=== PATIENT | male | born 1960 | race African-American/Black ===

== ENCOUNTER 2019-02-16 10:17 | Emergency (ER) | payer MEDICAID ==
[~2019-02-16] VITALS: Ht 170.2 cm; Wt 90.0 kg
[2019-02-16] MEDS ORDERED: SODIUM CHLORIDE 0.9% 1,000 ML IV ONE (10:30)
[2019-02-16 11:12] LABS: EOSINOPHILS % 3.1 % (0.0-5.0); HEMATOCRIT. 43.5 % (42.0-52.0); HEMOGLOBIN. 14.4 g/dL (14.0-18.0); LYMPHOCYTES % 30.3 % (20.0-50.0); MEAN CORPUSCULAR HEMOGLOBIN 29.3 pg (28.0-32.0); MEAN CORPUSCULAR VOLUME 88.6 fL (80.0-94.0); MEAN PLATELET VOLUME 9.7 fl (7.4-10.4); MONOCYTES % 8.4 % (2.0-8.0); NEUTROPHILS % 56.2 % (40.0-76.0); PLATELET 205 x1000/uL (130-400); RED BLOOD CELL COUNT 4.91 mill/uL (4.7-6.1); RED CELL DISTRIBUTION WIDTH 14.2 % (11.6-14.6)
[2019-02-16] MEDS ORDERED: ONDANSETRON HCL 4MG/2ML INJ IV ONE (11:15)
[2019-02-16] MEDS ORDERED: MORPHINE SULFATE 4 MG/ML CPJ (NOT FOR IM USE) IV ONE (11:15)
[2019-02-16 11:20] LABS: CHLORIDE 108 mEq/L (98-107)
[2019-02-16 11:26] LABS: ETHANOL BLOOD < 10 mg/dL
[2019-02-16] MEDS ORDERED: FENTANYL CITRATE/PF 50MCG/ML 2ML VIAL IV ONE (11:45)
[2019-02-16 13:34] LABS: *AMPHETAMINES SCREEN URINE NEGATIVE (NEGATIVE); *BARBITURATES SCREEN URINE NEGATIVE (NEGATIVE); *BENZODIAZEPINES SCREEN URINE NEGATIVE (NEGATIVE); *COCAINE SCREEN URINE NEGATIVE (NEGATIVE); CANNABINOID URINE SCREEN NEGATIVE (NEGATIVE); PHENCYCLIDINE URINE SCREEN NEGATIVE (NEGATIVE)
[2019-02-16 13:36] LABS: METHADONE URINE SCREEN NEGATIVE (NEGATIVE); OPIATES URINE SCREEN NEGATIVE (NEGATIVE)
[2019-02-16 17:00] VITALS: BP 92/66
== END 2019-02-16 18:31 | disposition home or self-care (01) ==
LOC: ER 10:30 → EDBEDREQ 12:42 → EDBEDREQSVC 12:42 → ER 18:31 → CANBEDREQ 19:08
DX: R07.89 Other chest pain (principal); I16.1 Hypertensive emergency; I11.0 Hypertensive heart disease with heart failure; I50.9 Heart failure, unspecified; F32.9 Major depressive disorder, single episode, unspecified; I25.10 Atherosclerotic heart disease of native coronary artery without angina pectoris; I25.2 Old myocardial infarction; F17.200 Nicotine dependence, unspecified, uncomplicated; Z95.5 Presence of coronary angioplasty implant and graft; Z91.041 Radiographic dye allergy status; Z88.4 Allergy status to anesthetic agent
CPT/HCPCS: 36415; 71045; 80053; 80305; 80320; 83690; 83880; 84484; 85025; 93005; 99284; J3010; J7030; J2405; G0480

== ENCOUNTER 2019-02-26 20:20 | Inpatient (IN) | payer MEDICAID ==
[~2019-02-26] VITALS: Ht 167.6 cm; Wt 76.7 kg
[2019-02-26] MEDS ORDERED: ONDANSETRON HCL 4MG/2ML INJ IV STA (21:21)
[2019-02-26] MEDS ORDERED: SODIUM CHLORIDE 0.9% 1,000 ML IV ONE ×4 (21:21→23:47)
[2019-02-26] MEDS ORDERED: MORPHINE SULFATE 4 MG/ML CPJ (NOT FOR IM USE) IV STA (21:21)
[2019-02-26] MEDS ORDERED: NITROGLYCERIN 0.4MG TABLET SL SL PRN (21:30)
[2019-02-26] MEDS ORDERED: ASPIRIN 81MG TABLET PO ONE (21:30)
[2019-02-26 22:56] LABS: *AMPHETAMINES SCREEN URINE NEGATIVE (NEGATIVE); *BARBITURATES SCREEN URINE NEGATIVE (NEGATIVE); *BENZODIAZEPINES SCREEN URINE NEGATIVE (NEGATIVE); *COCAINE SCREEN URINE NEGATIVE (NEGATIVE); METHADONE URINE SCREEN NEGATIVE (NEGATIVE)
[2019-02-26 22:57] LABS: CANNABINOID URINE SCREEN NEGATIVE (NEGATIVE); OPIATES URINE SCREEN NEGATIVE (NEGATIVE); PHENCYCLIDINE URINE SCREEN NEGATIVE (NEGATIVE)
[2019-02-26 23:32] LABS: BASOPHILS % 0.9 % (0.0-2.0); EOSINOPHILS % 0.7 % (0.0-5.0); HEMATOCRIT. 38.3 % (42.0-52.0); HEMOGLOBIN. 12.7 g/dL (14.0-18.0); LYMPHOCYTES % 19.8 % (20.0-50.0); MEAN CORPUSCULAR HEMOGLOBIN 29.4 pg (28.0-32.0); MEAN CORPUSCULAR VOLUME 88.4 fL (80.0-94.0); MEAN PLATELET VOLUME 9.7 fl (7.4-10.4); MONOCYTES % 8.4 % (2.0-8.0); NEUTROPHILS % 70.2 % (40.0-76.0); PLATELET 181 x1000/uL (130-400); RED BLOOD CELL COUNT 4.33 mill/uL (4.7-6.1)
[2019-02-26 23:35] LABS: CHLORIDE 109 mEq/L (98-107)
[2019-02-26 23:41] LABS: D-DIMER 0.32 mg/L FEU (<0.50); PARTIAL THROMBOPLASTIN TIME 33.1 sec (23.4-31.0); PROTHROMBIN TIME 10.1 sec (9.6-11.0)
[2019-02-27] MEDS ORDERED: PHENYTOIN SODIUM EXTENDED 100MG CAPSULE PO SCH (02:00)
[2019-02-27] MEDS: IBUPROFEN 600MG TABLET PO PRN ×2 (02:04→20:39)
[2019-02-27] MEDS: LEVETIRACETAM 500MG TABLET PO SCH ×2 (09:00→15:48)
[2019-02-27] MEDS ORDERED: ACETAMINOPHEN 325MG TABLET PO PRN (09:30)
[2019-02-27] MEDS ORDERED: IPRATROPIUM/ALBUTEROL 0.5-3(2.5)MG/3ML NEB HHN PRN (09:30)
[2019-02-27] MEDS ORDERED: ONDANSETRON HCL 4MG/2ML INJ IV PRN (09:30)
[2019-02-27 10:09] LABS: LDL CHOLESTEROL 64 mg/dL (5-100)
[2019-02-27 10:10] LABS: HDL CHOLESTEROL 71 mg/dL (40-59)
[2019-02-27] MEDS ORDERED: LEVOFLOXACIN 750MG PREMIX 150 ML IV NR (10:23)
[2019-02-27] MEDS ORDERED: KETOROLAC 30MG/ML VIAL IV PRN (11:00)
[2019-02-27] MEDS ORDERED: BUDESONIDE 0.5MG/2ML NEB HHN SCH (11:00)
[2019-02-27 12:00] VITALS: BP 99/54
[2019-02-27] MEDS ORDERED: ASPIRIN 81MG TABLET PO SCH (12:00)
[2019-02-27] MEDS: NICOTINE 21MG PATCH TD SCH (15:29)
[2019-02-27] MEDS ORDERED: QUET100T MT (15:35)
[2019-02-27] MEDS ORDERED: PHEN50TA PO (15:35)
[2019-02-27] MEDS ORDERED: BENZ1TAB7 MT (15:35)
[2019-02-27] MEDS ORDERED: CLOP75TA33 PO (15:35)
[2019-02-27] MEDS ORDERED: FURO-152 PO (15:35)
[2019-02-27] MEDS ORDERED: ASPI-1158 PO (15:35)
[2019-02-27] MEDS ORDERED: POTA10TA19 PO (15:35)
[2019-02-27] MEDS ORDERED: HAL5 MT (15:35)
[2019-02-27] MEDS ORDERED: IBUP-2030 PO (15:35)
[2019-02-27] MEDS ORDERED: ATOR40TA70 PO (15:35)
[2019-02-27] MEDS ORDERED: FLUT1AER4 INH (15:35)
[2019-02-27] MEDS ORDERED: CLOPIDOGREL 75MG TABLET PO SCH (15:45)
[2019-02-27] MEDS ORDERED: HALOPERIDOL 5MG TABLET PO PRN (15:45)
[2019-02-27 16:00] VITALS: BP 101/56
[2019-02-27] MEDS: QUETIAPINE FUMARATE 50MG TABLET PO SCH ×2 (17:10→20:01)
[2019-02-27] MEDS: BENZTROPINE MESYLATE 1MG TABLET PO SCH ×2 (17:10→20:02)
[2019-02-27] MEDS: CLOPIDOGREL 75MG TABLET PO SCH (17:10)
[2019-02-27] MEDS: PHENYTOIN SODIUM EXTENDED 100MG CAPSULE PO SCH ×2 (17:10→20:02)
[2019-02-27] MEDS ORDERED: ATORVASTATIN CALCIUM 40MG TABLET PO SCH ×2 (21:00)
[2019-02-28 00:31] VITALS: BP 92/50
[2019-02-28 04:00] VITALS: BP 101/64
[2019-02-28 06:31] LABS: BASOPHILS % 1.3 % (0.0-2.0); HEMATOCRIT. 41.2 % (42.0-52.0); HEMOGLOBIN. 13.9 g/dL (14.0-18.0); LYMPHOCYTES % 36.7 % (20.0-50.0); MEAN CORPUSCULAR HEMOGLOBIN 30.1 pg (28.0-32.0); MEAN CORPUSCULAR VOLUME 89.2 fL (80.0-94.0); MEAN PLATELET VOLUME 10.6 fl (7.4-10.4); MONOCYTES % 11.5 % (2.0-8.0); NEUTROPHILS % 47.5 % (40.0-76.0); PLATELET 198 x1000/uL (130-400); RED BLOOD CELL COUNT 4.62 mill/uL (4.7-6.1)
[2019-02-28 06:36] LABS: CHLORIDE 113 mEq/L (98-107)
[2019-02-28 08:00] VITALS: BP 92/45
[2019-02-28] MEDS ORDERED: REGADENOSON 0.4 MG/5 ML IV ONE ×2 (08:30→12:58)
[2019-02-28] MEDS: PHENYTOIN SODIUM EXTENDED 100MG CAPSULE PO SCH (09:00)
[2019-02-28] MEDS ORDERED: PNEUMOCOCCAL 23-VAL P-SAC VAC 0.5 ML IM ONE (09:00)
[2019-02-28] MEDS: QUETIAPINE FUMARATE 50MG TABLET PO SCH (09:00)
[2019-02-28] MEDS: CLOPIDOGREL 75MG TABLET PO SCH (09:00)
[2019-02-28] MEDS: BENZTROPINE MESYLATE 1MG TABLET PO SCH (09:00)
[2019-02-28] MEDS ORDERED: ASPIRIN 81MG EC TABLET PO SCH (09:00)
[2019-02-28] MEDS ORDERED: INFLUENZA VIRUS VACCINE(AFLURIA) 0.5ML SYR IM ONE (09:00)
[2019-02-28] MEDS ORDERED: POTASSIUM CHLORIDE 8 MEQ TABLET.SA PO SCH (09:00)
[2019-02-28] MEDS ORDERED: LEVOFLOXACIN 750MG PREMIX 150 ML IV SCH (10:00)
[2019-02-28] MEDS ORDERED: IPRA3AMP9 NEB (12:09)
[2019-02-28] MEDS: NICOTINE 21MG PATCH TD SCH (12:55)
[2019-02-28 16:00] VITALS: BP 99/51
[2019-02-28 17:44] VITALS: BP 99/50
== END 2019-02-28 19:16 | disposition home or self-care (01) | DRG 139 ==
LOC: ER 20:20 → 7WST 02-27 00:02 → EDBEDREQDT 02-27 00:07 → EDBEDREQTM 02-27 00:07 → EDBEDREQ 02-27 00:07 → ENRESERV 02-27 10:47
PROVIDERS: ADMIT Internal Medicine; ATTEND Internal Medicine
DX: J18.9 Pneumonia, unspecified organism (principal); E87.8 Other disorders of electrolyte and fluid balance, not elsewhere classified; E44.0 Moderate protein-calorie malnutrition; F20.9 Schizophrenia, unspecified; I11.0 Hypertensive heart disease with heart failure; I50.9 Heart failure, unspecified; M94.0 Chondrocostal junction syndrome [Tietze]; D64.9 Anemia, unspecified; E78.5 Hyperlipidemia, unspecified; F14.90 Cocaine use, unspecified, uncomplicated; F17.210 Nicotine dependence, cigarettes, uncomplicated; G40.909 Epilepsy, unspecified, not intractable, without status epilepticus; I25.10 Atherosclerotic heart disease of native coronary artery without angina pectoris; J44.0 Chronic obstructive pulmonary disease with (acute) lower respiratory infection; Z79.02 Long term (current) use of antithrombotics/antiplatelets; Z79.82 Long term (current) use of aspirin; Z68.27 Body mass index [BMI] 27.0-27.9, adult; I25.2 Old myocardial infarction; Z79.899 Other long term (current) drug therapy; Z86.73 Personal history of transient ischemic attack (TIA), and cerebral infarction without residual deficits; Z91.041 Radiographic dye allergy status; Z88.8 Allergy status to other drugs, medicaments and biological substances
CPT/HCPCS: 36415; 71045; 78452; 80048; 80053; 80061; 80305; 83880; 84443; 84484; 85025; 85379; 93005; 93017; 93306; 93970; 96374; 99285; A9500; C1893; J1630; J1956; J2405; J2785; J7030; J7040